=== PATIENT | female | born 1935 | race African-American/Black ===

== ENCOUNTER 2019-02-05 16:52 | Inpatient (IN) | payer OTHER ==
[~2019-02-05] VITALS: Ht 160 cm; Wt 97.5 kg
[2019-02-05 16:53] VITALS: BP 99/75
[2019-02-05 17:08] LABS: ABSOLUTE NEUTROPHILS 3.5 thou/uL (1.4-8.2); EOSINOPHILS 0.6 % (0.0-3.0); HEMATOCRIT 31.4 % (37.0-47.0); HEMOGLOBIN 10.4 gm/dL (12.0-15.0); MCH 28.7 pg (26.0-34.0); MONOCYTES 8.8 % (1.0-8.0); PLATELET COUNT 465 thou/uL (150-400); POLYS 42.6 % (36.0-66.0); RBC 3.61 mil/uL (4.20-5.00); RDW 14.3 % (10.5-14.5); WBC 8.3 thou/uL (4.0-11.0)
[2019-02-05 17:17] LABS: ANION GAP 12 mmol/L (7-16); BUN 38 mg/dL (7-18); CHLORIDE 94 mmol/L (98-107); CO2 26 mmol/L (21-32); CREATININE 2.4 mg/dL (0.6-1.0); GLUCOSE 189 mg/dL (74-106); POTASSIUM 3.9 mmol/L (3.5-5.1); SODIUM 132 mmol/L (136-145)
[2019-02-05 17:27] LABS: ALBUMIN 3.2 g/dL (3.4-5.0); MAGNESIUM 2.5 mg/dL (1.8-2.4); SGOT 13 U/L (15-37); SGPT 12 U/L (30-65); TOTAL BILIRUBIN 0.2 mg/dL (<0.1-1.0); TOTAL PROTEIN 9.1 g/dL (6.4-8.2); TROPONIN-I <0.06 ng/mL (<0.06)
[2019-02-05 18:52] LABS: URINE BILIRUBIN NEGATIVE (Negative); URINE BLOOD 1+ (Negative); URINE CLARITY CLEAR; URINE COLOR YELLOW; URINE GLUCOSE-RANDOM* NEGATIVE (Negative); URINE KETONES NEGATIVE (Negative); URINE NITRITE-REFLEX NEGATIVE (Negative); URINE PROTEIN (DIPSTICK) TRACE (Negative); URINE SPECIFIC GRAVITY <= 1.005 (1.005-1.035); URINE UROBILINOGEN 0.2 E.U./dl (0.2-1.0)
[2019-02-05 18:54] LABS: URINE LEUKOCYTES-REFLEX 3+ (Negative)
[2019-02-05 18:57] LABS: SQUAMOUS 0-3 Few /LPF (0-3); URINE RBC 3-10 Few /HPF (0-2); URINE WBC-REFLEX >25 Many /HPF (0-5)
[2019-02-05 18:58] LABS: BACTERIA-REFLEX >30 Many /HPF (None Seen); CASTS None Seen /LPF (None Seen); CRYSTALS None Seen /LPF (None Seen)
[2019-02-05 22:21] VITALS: BP 189/71
[2019-02-05] MEDS ORDERED: LASIX 40 MG TAB40 M2 PO (22:38)
[2019-02-05 23:45] VITALS: BP 165/74
--- NOTE | 2019-02-06 00:15 | NUR ---
PT ADMITTED FROM ED WITH NATAN,DEHYDRATION,SYNCOPY AND UTI.PT ARRIVED TO UNIT VIA CART ACCOMPANIED BY FAMILY.PT IS A/OX4.IVF INFUSING AT 80CC/HR.DENIES PAIN OR ANY DISTRESS AT THIS TIME.UP TO BSC WITH ASSIST.PT USES ELECTRIC W/C AND A CANE AT HOME TO AMBULATES.VSS.ORIENTED TO RM AND UNIT ACTIVITIES.RN UNABLE TO RECONCILE MEDS SINCE PT DOES NOT REMEMBER THE NAME OF ALL MEDS SHE TAKES.SHE ADMITTED OF TAKING TWO PILLS,FUROSEMIDE 40MG AND THE OTHER ONE IS BLOOD PRESSURE MED LITTLE PINK COLOR.SHE ALSO MENTION LIPITOR.PT TO ASK HIS SON TO CHECK HER MEDICINE BOTTLES AT HOME AND BRING THEM TOMORROW.ASSESSMENT COMPLETED DOCUMENTED.WILL CONT TO MONITOR PER POC.
[2019-02-06 05:31] VITALS: BP 148/52
[2019-02-06 06:16] LABS: HEMATOCRIT 28.4 % (37.0-47.0); HEMOGLOBIN 9.7 gm/dL (12.0-15.0); MCH 29.6 pg (26.0-34.0); MCV 86.9 fL (80.0-100.0); RBC 3.27 mil/uL (4.20-5.00); RDW 14.2 % (10.5-14.5)
[2019-02-06 06:33] LABS: ALBUMIN 2.6 g/dL (3.4-5.0); ANION GAP 8 mmol/L (7-16); BUN 29 mg/dL (7-18); CALCIUM 8.4 mg/dL (8.5-10.1); CHLORIDE 106 mmol/L (98-107); CO2 26 mmol/L (21-32); CREATININE 1.5 mg/dL (0.6-1.0); GLUCOSE 118 mg/dL (74-106); POTASSIUM 4.2 mmol/L (3.5-5.1); SGOT 13 U/L (15-37); SGPT 12 U/L (30-65); SODIUM 140 mmol/L (136-145); TOTAL BILIRUBIN 0.2 mg/dL (<0.1-1.0); TOTAL PROTEIN 7.6 g/dL (6.4-8.2); TROPONIN-I <0.06 ng/mL (<0.06)
[2019-02-06 06:59] VITALS: BP 155/68
--- NOTE | 2019-02-06 10:46 | 2DMMODE ---
[facility] [address] [place] [address] 2 D/M-MODE ECHOCARDIOGRAM Name: LÁZARO ELLIS [facility] Room #: 210-P ADM IN M.R.#: [id number] ������������� Admission: 02/05/19 ������������� Attend Phys: Josh Rucker, Discharge: ��� ������������� ��� Date of : 39 Date of Service: 02/06/19 1045 �� Report #: [id number] �������� ��������������������������������������������[id number] THIS REPORT FOR: //name// APPROVED REPORT Study performed: 02/06/2019 09:40:46 EXAM: Comprehensive 2D, Doppler, and color-flow Echocardiogram Patient Location: Bedside Room #: 210 Status: on-call BSA: 1.99 HR: 90 bpm BP: 155/68 mmHg Rhythm: NSR Other Information Study Quality: Good Indications Syncope Hx: VT, cardiomyopathy, HTN, HLP. 2D Dimensions RVDd: 35.36 mm IVSd: 11.65 (7-11mm) LVOT Diam: 19.75 (18-24mm) LVDd: 43.28 mm PWd: 8.94 (7-11mm) LVDs: 29.27 (25-40mm) Aortic Root: 29.89 mm Volumes Left Atrial Volume (Systole) Single Plane 4CH: 58.12 mL Single Plane 2CH: 57.03 mL Aortic Valve AoV Peak Nazario.: 2.90 m/s AO Peak Gr.: 33.57 mmHg LVOT Max P.85 mmHg AO Mean Gr.: 19.78 mmHg AO V2 Mean: 2.15 m/s LVOT Max V: 1.72 m/s AO V2 VTI: 59.88 cm CORRINE Vmax: 1.82 cm2 Mitral Valve E/A Ratio: 0.7 [facility] [place] [address] 2 D/M-MODE ECHOCARDIOGRAM Name: LÁZARO ELLIS [facility] Room #: [facility] IN .R.#: [id number] ������������� Admission: 02/05/19 ������������� Attend Phys: Josh Rucker, Discharge: ��� ������������� ��� Date of : 39 Date of Service: 02/06/19 1045 �� Report #: [id number] �������� ��������������������������������������������[id number] MV Decel. Time: 257.92 ms MV E Max Nazario.: 1.27 m/s MV A Nazario.: 1.76 m/s MV PHT: 74.80 ms IVRT: 62.28 ms Pulmonary Valve PV Peak Nazario.: 1.71 m/s PV Peak Gr.: 11.73 mmHg Pulmonary Vein P Vein S: 0.79 m/s P Vein D: 0.46 m/s P Vein S/D Ratio: 1.72 Tricuspid Valve TR Peak Nazario.: 2.42 m/s RAP Estimate: 5.00 mmHg TR Peak Gr.: 23.52 mmHg PA Pressure: 29.00 mmHg Left Ventricle The left ventricle is normal size. There is normal LV segmental wall motion. Mild basal septal hypertrophy is present. Left ventricular systolic function is hyperdynamic. LVEF is 65-70%. Mild diastolic dysfunction Right Ventricle The right ventricle is normal size. The right ventricular systolic function is normal. Atria The left atrium size is normal. The right atrium size is normal. Aortic Valve Aortic valve is mild to moderately calcified, trileaflet Trace aortic regurgitation. There is mild valvular aortic stenosis. Calculated aortic valve area is 1.8 cm2 with maximum pressure gradient of 34 mmHg and mean pressure gradient of 20 mmHg. Mitral Valve Moderate mitral annular calcification. There is no mitral valve regurgitation noted. No evidence of mitral valve stenosis. Tricuspid Valve The tricuspid valve is normal in structure. Trace tricuspid regurgitation. Estimated PAP is 30mmHg. [address] [address] 2 D/M-MODE ECHOCARDIOGRAM Name: LÁZARO ELLIS [facility] Room #: 210-P [facility] IN ..#: [id number] ������������� Admission: 02/05/19 ������������� Attend Phys: Josh Rucker, Discharge: ��� ������������� ��� Date of : 39 Date of Service: 02/06/19 1045 �� Report #: [id number] �������� ��������������������������������������������[id number] Pulmonic Valve The pulmonary valve is normal in structure. Trace pulmonic regurgitation. Great Vessels The aortic root is normal in size. The ascending aorta is normal in size. IVC is normal in size and collapses >50% with inspiration. Pericardium There is no pericardial effusion. <Conclusion> Left ventricular systolic function is hyperdynamic. There is normal LV segmental wall motion. LVEF is 65-70%. Mild diastolic dysfunction Aortic valve is mild to moderately calcified, trileaflet, mild stenosis. Calculated aortic valve area is 1.8 cm2 with maximum pressure gradient of 34 mmHg and mean pressure gradient of 20 mmHg. Moderate mitral annular calcification. No mitral valve regurgitation. Trace tricuspid regurgitation. Estimated pulmonary artery pressure of 30mmHg. There is no pericardial effusion. ��������������������������������������������� <ELECTRONICALLY SIGNED> ���������������������������������������� By: Florentin Conti MD, [facility] ��������������������������������������������� 02/06/19 1045 1045 1045 Florentin Conti MD, FACC /INF
--- NOTE | 2019-02-06 11:11 | EKG ---
[place] [address] [facility] [place] [address] ELECTROCARDIOGRAM REPORT Name: LÁZARO ELLIS Room #: 210-P ADM IN M.R.#: [id number] ������������������ Admission: 02/05/19 ������������������ Attend Phys: Josh Rucker MD Discharge: ������������������ Date of : 37 Report #: [id number] ����������������������������������������������������������������� [id number] THIS REPORT FOR: //name// [facility] ED Test Date: 2019-02-05 Test Time: 17:01:02 Pat Name: LÁZARO ELLIS Department: Room: 210 Gender: F Tailer In: BRETT : 1935 Requested By: Tolu Sage Order Number: [id number] MD: Florentin Conti Measurements Intervals [place] Rate: 85 P: 39 AL: 178 QRS: 37 QRSD: 103 T: 80 QT: 373 QTc: 444 Interpretive Statements Sinus rhythm Ventricular premature complex Otherwise normal tracing Compared to ECG 02/02/2009 11:31:45 Ventricular premature complex(es) now present Electronically Signed On 02-06-2019 11:11:41 CDT by Florentin Conti [email or web address] ��������������������������������������������� <ELECTRONICALLY SIGNED> ���������������������������������������� By: Florentin Conti MD, FAC ��������������������������������������������� 02/06/19 1111 1701 1701 Florentin Conti MD, [facility] /EPI
[2019-02-06 11:20] VITALS: BP 151/70
[2019-02-06 15:21] VITALS: BP 152/49
--- NOTE | 2019-02-06 19:29 | NUR ---
ASSUMED CARE AT SHIFT CHANGE, ALERT AND ORIENTED X4 AND FORGETFUL. VSS AND SR WITH PVC's ON THE MONITOR. DENIES ANY CP OR DISCOMFORT. S/B DR HAN TODAY. PROGRESSING TOWARDS GOAL AND WILL CONTINUE WITH POC.
[2019-02-06 20:10] VITALS: BP 151/74
[2019-02-07] VITALS (12 sets, daily range): BP systolic 148–228; BP diastolic 59–107
[2019-02-07 05:17] LABS: HEMATOCRIT 26.6 % (37.0-47.0); HEMOGLOBIN 8.8 gm/dL (12.0-15.0); MCH 29.1 pg (26.0-34.0); MCHC 33.1 g/dL (28.0-37.0); RBC 3.02 mil/uL (4.20-5.00); RDW 15.1 % (10.5-14.5); WBC 5.8 thou/uL (4.0-11.0)
--- NOTE | 2019-02-07 05:41 | NUR ---
RECEIVED PT'S CARE AT 1930; PT. ON BED; AOX4; DURING ASSESSMENT PT. C/O R. AC IV PAIN; ASSESSED; IV ABLE TO FLUSH; NO REDNESS; NO SWELLING; DRESSING CHANGE; DURING THE NIGHT PT. REQUESTED PAIN MEDICATION FOR R. FOOT; NATIONAL SECRETARY NOTIFIED; ORDERS RECEIVED; PRN PAIN MEDICATION GIVEN; RE-ASSESSMENT PT. SLEEPING; CALLED APROPIATELY DURING THE NIGHT; ABLE TO REST DURING THE NIGHT; ASSESSMENT CHARGED; FOLLOWING POC; WILL PASS ON REPORT.
[2019-02-07 05:46] LABS: CALCIUM 8.3 mg/dL (8.5-10.1); CREATININE 1.2 mg/dL (0.6-1.0); POTASSIUM 4.1 mmol/L (3.5-5.1)
[2019-02-07 09:17] LABS: % SATURATION 32 % (20-39); IRON 75 ug/dL (50-170); TIBC 233 ug/dL (250-450)
--- NOTE | 2019-02-07 11:09 | HC ---
[facility] [place] [address] CONSULTATION Name: LÁZARO ELLIS [facility] Room #: 210-P [facility] IN M.R.#: [id number] Admission: 02/05/19 ������������������ Attend Phys: Josh Rucker MD Discharge: ������������������ Date of : 37 Report #: [id number] THIS REPORT FOR: //name// CC: Josh Rucker NO PCP HISTORY OF PRESENT ILLNESS: The patient is an 84-year-old female who told me that today she missed her grandson's . He was 26 years old and was killed in a motor vehicle accident. Fortunately, her daughter who has bipolar disorder has an older son who is 28 and still living. The patient has a history of cardiomyopathy and glaucoma. She was out shopping, when she sat down she felt tired. While in the sitting position she felt lightheaded. The patient then had a syncopal episode. The patient states she has never had an episode like this in the past. She has been feeling tired for at least 3 weeks and taking naps in the afternoon. PAST MEDICAL HISTORY: Cardiomyopathy, renal disease, hypertension. PAST SURGICAL HISTORY: Tubal ligation, bilateral knee replacement, glaucoma surgery, cataract implants, several D and Cs. MEDICATIONS: Norvasc 5 mg daily, pantoprazole 20 mg daily. ALLERGIES: CHLORPROMAZINE, CODEINE, PENICILLIN, DARVON, SULFA. PHYSICAL EXAMINATION: VITAL SIGNS: Temperature 37.1, pulse rate 80, respiratory rate 18, blood pressure 151/70, bedside pulse oximetry 100%. NEUROLOGIC: Cranial nerves 2-12 are grossly intact. Motor exam demonstrates symmetrical strength in all 4 extremities with tone and bulk normal. Reflexes are trace throughout. Plantar responses are flexor. Coordination reveals intact [id number]. LABORATORY DATA: Hematology: White blood cell count 7, hemoglobin 9.7, hematocrit 28.4. Urinalysis: 3+ leukocyte esterase. Chemistry: Sodium 140, potassium 4.2, chloride 106, carbon dioxide 28, BUN 29, creatinine 1.5. Admission BUN 38 with a creatinine of 2.4, glucose 118. IMAGING: Carotid ultrasound demonstrates no hemodynamically significant stenosis. IMPRESSION: The patient has most likely had an episode of vasovagal syncope. This is multifactorial in nature and related to her urinary tract infection and underlying renal disease. The patient is currently being hydrated. [address] [address] CONSULTATION Name: LÁZARO ELLIS [facility] Room #: 210-P [facility] IN M.R.#: [id number] Admission: 02/05/19 ������������������ Attend Phys: Josh Rucker MD Discharge: ������������������ Date of : 37 Report #: [id number] At this point, I have no further suggestions. The patient is being followed by Cardiology. This event is not a seizure. I thank you for your kind referral of the patient. ��������������������������������������������� <ELECTRONICALLY SIGNED> ���������������������������������������� By: Romina Aparicio DO ��������������������������������������������� 02/07/19 1109 1140 1157 Romina Aparicio DO /raymundo
--- NOTE | 2019-02-07 16:46 | NUR ---
ASSUMED CARE AT SHIFT CHANGE ALERT, ORIENTED X4 AND FORGETFUL AT TIMES. PATIENT C/O RAC IV, DISCONTINUED AND NEW IV PLACED JACKIE. SR W/ PVC's, BP SILGHLTY ELEVATED, DR HAN NOTIFIED, AND PATIENT MEDICATED PER ORDERS. PROGRESSING TOWARDS GOALS AND WILL CONTINUE WITH POC.
[2019-02-08 04:48] LABS: HEMATOCRIT 27.3 % (37.0-47.0); HEMOGLOBIN 8.9 gm/dL (12.0-15.0); MCH 29.3 pg (26.0-34.0); MCHC 32.7 g/dL (28.0-37.0); MCV 89.8 fL (80.0-100.0); RBC 3.05 mil/uL (4.20-5.00); RDW 15.1 % (10.5-14.5); WBC 6.8 thou/uL (4.0-11.0)
[2019-02-08 04:58] LABS: CALCIUM 8.8 mg/dL (8.5-10.1); CREATININE 1.1 mg/dL (0.6-1.0); POTASSIUM 4.3 mmol/L (3.5-5.1)
--- NOTE | 2019-02-08 05:16 | NUR ---
RECEIVED PT'S CARE AT 1906; PT. ON BED; AOX4; DURING ASSESSMENT C/O SHOULDER PAIN; PRN PAIN MEDICATION GIVEN; RE-ASSESSMENT PT. RESTING; REQUESTED ANTI-ANXIETY MEDICATION AFTER 2200; C/O GERD ; RIVER DRIVER NOTIFIED; ORDERS RECEIVED; PRN MEDICATION GIVEN; ABLE TO REST THROUGH THE NIGTH WITH EYES CLOSED; EARLY ON THE MORNING TRANSFER TO [place] PER RIVER DRIVER ORDERS; LIMOUSINE RENTAL CLERK AWARE; ASSESSMENT CHARGED FOLLOWING POC; MONITORING; WILL PASS ON REPORT.
[2019-02-08 05:41] VITALS: BP 178/77
[2019-02-08 08:18] VITALS: BP 156/69
--- NOTE | 2019-02-08 10:29 | NUR ---
Initial high screening risk for possible wt loss 2-13 lb and decreased intake. Upon visit, pt eating well, orders own foods and no wt loss reported. Does not have hx diabetes, ?on carb control diet order. Change to regular as pt states please do not give me any of that "artificial stuff". No accuchecks. Low nutrition risk
[2019-02-08] MEDS ORDERED: CARDIZEM CD 18180 M3 PO (10:45)
[2019-02-08] MEDS ORDERED: CEFUROXIME500 MG PO (10:45)
[2019-02-08] MEDS ORDERED: TYLENOL EXTRA500 MG PO (10:45)
[2019-02-08 11:50] VITALS: BP 156/69
[2019-02-08 12:52] VITALS: BP 156/69
--- NOTE | 2019-02-08 13:14 | NUR ---
PT DISCHARGING TODAY TO HOME WITH [facility] HH SPOKE WITH SHENA IN ADM AND SHE WILL NOTIFY PT TIME OF VISITS.
[2019-02-08 14:23] VITALS: BP 156/69
--- NOTE | 2019-02-08 16:00 | NUR ---
patient to dc home with HH. Reviewed HH options with patient. She has no preference. Referral to [facility] who is accepting. PCP Dr Klein. Rec script for walker for home no further needs.
--- NOTE | 2019-02-08 18:27 | NUR ---
ASSUMED CARE AT SHIFT CHANGE ALERT AND ORIENTED X4, FORGETFUL. SR ON THE MONITOR, BP ELEVATED AN MEDICACTED PER ORDERS. DISCHARGE AND MEDICATION INSTRUCTIONS GIVEN TO PATIENT. GAS TORCH BRAZIER MET WITH PATIENT AND ADDRESSED ALL CONCERNS, PLEASE CHECK DAVID NOTES. PATIENT WAITING FOR HER DAUGHTER TO PICK HER UP.
== END 2019-02-08 20:17 | disposition home health service (06) | DRG 682 ==
LOC: ER 16:52 → 2N 19:57 → EROBS 19:57 → 2N 20:50
PROVIDERS: Emergency Medicine; Internal Medicine; Nurse Practitioner; ADMIT Internal Medicine
DX: N17.9 Acute kidney failure, unspecified (principal); E43 Unspecified severe protein-calorie malnutrition; N39.0 Urinary tract infection, site not specified; E87.1 Hypo-osmolality and hyponatremia; I42.9 Cardiomyopathy, unspecified; E86.0 Dehydration; R55 Syncope and collapse; Z96.653 Presence of artificial knee joint, bilateral; E78.5 Hyperlipidemia, unspecified; I25.10 Atherosclerotic heart disease of native coronary artery without angina pectoris; H40.9 Unspecified glaucoma; D64.9 Anemia, unspecified; E86.9 Volume depletion, unspecified; I12.9 Hypertensive chronic kidney disease with stage 1 through stage 4 chronic kidney disease, or unspecified chronic kidney disease; I25.2 Old myocardial infarction; Z88.2 Allergy status to sulfonamides; Z88.0 Allergy status to penicillin; Z88.6 Allergy status to analgesic agent; Z88.8 Allergy status to other drugs, medicaments and biological substances
CPT/HCPCS: 10081

== ENCOUNTER → 2020-11-02 | Outpatient (CLI) | payer OTHER ==
[~2020-11-02] MED LIST: CARDIZEM CD 18180 M3 PO; CEFUROXIME500 MG PO; LASIX 40 MG TAB40 M2 PO; TYLENOL EXTRA500 MG PO
== END ==
LOC: SJCVC 13:02
PROVIDERS: ATTEND Internal Medicine
DX: R94.31 Abnormal electrocardiogram [ECG] [EKG] (principal); I25.10 Atherosclerotic heart disease of native coronary artery without angina pectoris; I10 Essential (primary) hypertension; E11.39 Type 2 diabetes mellitus with other diabetic ophthalmic complication; H40.9 Unspecified glaucoma; H42 Glaucoma in diseases classified elsewhere; E78.00 Pure hypercholesterolemia, unspecified; I25.2 Old myocardial infarction; R53.83 Other fatigue; E66.9 Obesity, unspecified; Z68.39 Body mass index [BMI] 39.0-39.9, adult; Z79.899 Other long term (current) drug therapy; Z72.89 Other problems related to lifestyle; Z88.1 Allergy status to other antibiotic agents; Z88.8 Allergy status to other drugs, medicaments and biological substances; Z88.2 Allergy status to sulfonamides; Z88.0 Allergy status to penicillin

== ENCOUNTER → 2020-12-11 | Outpatient (CLI) | payer OTHER | LOC: SJCVCIMAG 09:01 | PROVIDERS: ATTEND Internal Medicine | DX: I08.0 Rheumatic disorders of both mitral and aortic valves (principal); I49.3 Ventricular premature depolarization; I11.9 Hypertensive heart disease without heart failure; R94.39 Abnormal result of other cardiovascular function study; R07.9 Chest pain, unspecified; E78.00 Pure hypercholesterolemia, unspecified; R93.1 Abnormal findings on diagnostic imaging of heart and coronary circulation; I25.10 Atherosclerotic heart disease of native coronary artery without angina pectoris; E11.9 Type 2 diabetes mellitus without complications; Z78.9 Other specified health status; Z88.8 Allergy status to other drugs, medicaments and biological substances; Z79.899 Other long term (current) drug therapy ==

== ENCOUNTER → 2020-12-28 | Outpatient (CLI) | payer OTHER ==
[~2020-12-28] VITALS: Ht 152.4 cm; Wt 93.9 kg
[~2020-12-28] MED LIST changes: +AZELASTINE HCL6 ML OPHTHALMIC; +BENICAR40 MG PO; +BUSPIRONE HCL10 MG PO; +D3-200050 MCG PO; +DESYREL150 MG PO; +FLUOCINOLONE AC15 G3 TOP; +HYDROCORTISONE3011 TOP; +IBUPROFEN 600600 M1 PO; +LASIX 40 MG TAB40 MG PO; +NORVASC5 MG PO; +ONDANSETRON HCL4 M2 PO; +TOPROL XL25 MG PO; +VITAMIN B-121000 MC3 PO; +VOLTAREN ARTHRI20 GM TOP; +ZYRTEC10 M2 PO; +[UNRECOGNIZED DRUG - OTHER] TOP
[2020-12-28 07:35] VITALS: BP 197/83
[2020-12-28 07:54] LABS: HEMATOCRIT 32.9 % (37.0-47.0); MCH 31.4 pg (26.0-34.0); MCHC 33.5 g/dL (28.0-37.0); MCV 93.6 fL (80.0-100.0); RBC 3.51 mil/uL (4.20-5.00); RDW 13.8 % (10.5-14.5); WBC 8.2 thou/uL (4.0-11.0)
[2020-12-28 08:07] LABS: CALCIUM 9.6 mg/dL (8.5-10.1); CREATININE 1.2 mg/dL (0.6-1.0); POTASSIUM 3.7 mmol/L (3.5-5.1)
--- NOTE | 2020-12-28 08:19 | EKG ---
[facility] [place] [address] ELECTROCARDIOGRAM REPORT Name: LÁZARO ELLIS [id number] Admission: 12/28/20 Attend Phys: Javier Choudhury MD, Discharge: Date of : 37 Report #: [id number] [facility] Test Date: 2020-12-28 Test Time: 07:40:50 Pat Name: LÁZARO ELLIS Department: Room: Gender: F Conference Reservationist: SBULGISELA : 1935 Requested By: Javier Choudhury Order Number: [id number] MD: Florentin Conti Measurements Intervals [place] Rate: 62 P: 38 AL: 181 QRS: 9 QRSD: 105 T: 82 QT: 456 QTc: 463 Interpretive Statements Sinus rhythm LVH with secondary repolarization abnormality Anterior ST elevation, probably due to LVH Compared to ECG 02/05/2019 17:01:02 Ventricular premature complex(es) no longer present Electronically Signed On 12-28-2020 8:19:24 CDT by Florentin Conti [email or web address] <ELECTRONICALLY SIGNED> By: Florentin Conti MD, [facility] 12/28/20818 9 9 Florentin Conti MD, [facility] /EPI
--- NOTE | 2020-12-28 12:11 | EKG ---
[facility] [place] [employer] [place] [address] ELECTROCARDIOGRAM REPORT Name: LÁZARO ELLIS Room #: REG [facility].#: [id number] Admission: 12/28/20 Attend Phys: Javier Choudhury MD, Discharge: Date of : 37 Report #: [id number] [facility] Test Date: 2020-12-28 Test Time: 10:29:37 Pat Name: LÁZARO ELLIS Department: Room: Gender: F Bag Maker: SBULOW : 1935 Requested By: Javier Choudhury Order Number: [id number] MD: Shailesh De La Rosa Measurements Intervals [place] Rate: 65 P: 49 [place]: 187 QRS: 14 QRSD: 107 T: 112 QT: 445 QTc: 463 Interpretive Statements Sinus rhythm Probable left atrial enlargement LVH with secondary repolarization abnormality Anterior ST elevation, probably due to LVH Compared to ECG 12/28/2020 07:40:50 No significant changes Electronically Signed On 12-28-2020 12:10:52 CDT by Shailesh De La Rosa [email or web address] <ELECTRONICALLY SIGNED> By: Shailesh De La Rosa MD, [facility] 12/28/20 1210 1029 1029 Shailesh De La Rosa MD, [facility] /EPI
--- NOTE | 2020-12-29 17:56 | CATHLAB ---
[facility] [place] [address] INVASIVE PROCEDURE REPORT Name: LÁZARO ELLIS Room #: REG [facility] [place].#: [id number] Admission: 12/28/20 Attend Phys: Javier Choudhury MD, Discharge: Date of : 37 Report #: [id number] THIS REPORT FOR: cc: Kale Klein MD, Rene P. MD Mancuso, Gerald M. MD [facility] ~ APPROVED REPORT Study performed: 12/28/2020 09:14:55 Patient Details Patient Status: Out-Patient Room #: The patient is a 85 year-old female Event Personnel Javier Choudhury Lineman A Class, Ji Max RTR Scrub, Layla Suárez RTR Monitor, Rustam Campos RN sound equipment mechanic Performed Art Access - R femoral artery* Left Heart Cath w/or w/o Coronaries [id number] [facility] Aortogram Abdominal Peripheral Angio 922994 Hemostasis w/ Mynx 69095 Initial Mod Sed Same Phys/QHP Gr5y 028404 18261 Mod Sed Same Phys/QHP Ea 103900 Procedure Narrative The Right Groin^ was infiltrated with 1% Lidocaine subcutaneous anesthesia. A PINNACLE 6FR Sheath #[id number] sheath was inserted into the RFA^. Coronary angiography was performed using coronary diagnostic catheters. The right coronary system was accessed and visualized with a JR4 catheter. The left coronary system was accessed and visualized with a JL4 catheter. The left ventricle was accessed and visualized with a PIGTAIL catheter. Left ventriculogram was performed in 30 degree projection. An aortogram of the abdominal aorta was performed. Closure device was deployed with a Fr MYNXGRIP 6/7F #[id number]. The patient tolerated the procedure well and there were no complications associated with the procedure. There was no hematoma. Intraoperative Conscious Sedation Sedation start time: 9:33 Case end Time: 10:02 Fentanyl 100 mcg Versed 2 mg Fluoro Time: 2.50 minutes [facility] [address] [place] [address] INVASIVE PROCEDURE REPORT Name: LÁZARO ELLIS [id number] Admission: 12/28/20 Attend Phys: Javier Choudhury, Discharge: Date of : 37 Report #: [id number] Dose: DAP 4263.00 cGycm2 454 mGy Contrast Type and Amount: Visipaque 95 ml Hemodynamics The aortic pressure is 184/62 mmHg with a mean of 104 mmHg. The left ventricular pressure is 253/9 mmHg with a mean of mmHg. The left ventricular end diastolic pressure is 49 mmHg. Conclusion #1. Normal left jugular size and systolic function EF 55 to 60%. #2 abdominal aortogram reveals moderate aortic plaquing and tortuosity but no aneurysm. Brisk distal flow. 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 #3 left main moderately calcified widely patent giving rise to LAD and circumflex. #4 ostial LAD with a 40% irregularity mild disease distally proximal calcification is moderate. No occlusive disease. #5 circumflex OM nondominant with mild distal disease no occlusive disease. #6 dominant right coronary artery is tortuous mild plaquing giving rise to the PDA KARIN. No occlusive disease. Recommendations and plan: Continue aggressive risk factor modification. No indication for coronary intervention. Will evaluate the iliac aneurysm noninvasively. <ELECTRONICALLY SIGNED> By: Javier Choudhury MD, FACC 12/29/201755 55 55 Javier Choudhury MD, FACC /INF
== END | disposition home or self-care (01) ==
LOC: CATH 06:30
PROVIDERS: ATTEND Internal Medicine Cardiovascular Disease
DX: R07.9 Chest pain, unspecified (principal); R94.39 Abnormal result of other cardiovascular function study; I25.10 Atherosclerotic heart disease of native coronary artery without angina pectoris; I70.0 Atherosclerosis of aorta; I42.9 Cardiomyopathy, unspecified; I25.2 Old myocardial infarction; H40.9 Unspecified glaucoma; Z98.890 Other specified postprocedural states; Z79.899 Other long term (current) drug therapy; Z96.653 Presence of artificial knee joint, bilateral; Z98.51 Tubal ligation status; Z88.0 Allergy status to penicillin; Z88.2 Allergy status to sulfonamides; Z88.6 Allergy status to analgesic agent

== ENCOUNTER → 2021-03-07 | Outpatient (CLI) | payer OTHER | LOC: SJCVCIMAG 01-31 13:16 | PROVIDERS: ATTEND Internal Medicine | DX: I10 Essential (primary) hypertension (principal); I70.8 Atherosclerosis of other arteries; M79.604 Pain in right leg; M79.605 Pain in left leg; E78.00 Pure hypercholesterolemia, unspecified; I25.10 Atherosclerotic heart disease of native coronary artery without angina pectoris; I25.2 Old myocardial infarction; E11.9 Type 2 diabetes mellitus without complications; Z68.41 Body mass index [BMI] 40.0-44.9, adult; Z88.0 Allergy status to penicillin; Z88.8 Allergy status to other drugs, medicaments and biological substances; Z79.899 Other long term (current) drug therapy ==

== ENCOUNTER → 2021-05-08 | Outpatient (CLI) | payer OTHER | LOC: SJCVC 10:14 | PROVIDERS: ATTEND Internal Medicine | DX: I10 Essential (primary) hypertension (principal); I25.10 Atherosclerotic heart disease of native coronary artery without angina pectoris; E78.00 Pure hypercholesterolemia, unspecified; E11.9 Type 2 diabetes mellitus without complications; Z88.8 Allergy status to other drugs, medicaments and biological substances; Z88.0 Allergy status to penicillin; Z79.899 Other long term (current) drug therapy; Z72.89 Other problems related to lifestyle ==